=== PATIENT | female | born 1955 | race African-American/Black ===

== ENCOUNTER 2020-08-23 19:24 | Inpatient (IN) | payer MEDICARE, OTHER ==
[~2020-08-23] VITALS: Ht 152.4 cm; Wt 70.8 kg
[2020-08-23 21:58] LABS: BASOPHILS % 0.2 % (0.0-2.0); EOSINOPHILS % 0.4 % (0.0-5.0); HEMATOCRIT. 35.9 % (36.0-48.0); HEMOGLOBIN. 12.3 g/dL (12.0-16.0); LYMPHOCYTES % 13.6 % (20.0-50.0); MEAN CORPUSCULAR VOLUME 90.3 fL (81.0-99.0); MEAN PLATELET VOLUME 8.2 fl (7.4-10.4); MONOCYTES % 3.1 % (2.0-8.0); NEUTROPHILS % 82.7 % (40.0-76.0); PLATELET 347 x1000/uL (130-400); RED BLOOD CELL COUNT 3.98 mill/uL (4.2-5.4); RED CELL DISTRIBUTION WIDTH 14.2 % (11.6-14.6)
[2020-08-23 22:02] LABS: CHLORIDE 112 mEq/L (98-107)
[2020-08-24] MEDS ORDERED: SODIUM CHLORIDE 0.9% 1,000 ML IV ONE (01:00)
[2020-08-24] MEDS ORDERED: IOHEXOL-350 100 ML BOTTLE ONE (01:34)
[2020-08-24] MEDS ORDERED: ASPIRIN 325MG EC TABLET PO ONE (02:15)
[2020-08-24] MEDS ORDERED: DIPHENHYDRAMINE 50MG/ML VIAL IV PRN (08:00)
[2020-08-24] MEDS ORDERED: GUAIFENESIN 200MG/10ML SUGAR FREE UDC PO PRN (08:00)
[2020-08-24] MEDS ORDERED: NA PHOS,M-B/NA PHOS,DI-BA ENEMA 118ML PR PRN (08:00)
[2020-08-24] MEDS ORDERED: MORPHINE SULFATE 2 MG/ML CPJ (NOT FOR IM USE) IV PRN (08:00)
[2020-08-24] MEDS ORDERED: CLONIDINE 0.1MG TABLET PO PRN (08:00)
[2020-08-24] MEDS ORDERED: HYDROCODONE/ACETAMINOPHEN 5/325MG TABLET PO PRN (08:00)
[2020-08-24] MEDS ORDERED: DOCUSATE SODIUM 100MG CAPSULE PO PRN (08:00)
[2020-08-24] MEDS ORDERED: IPRATROPIUM/ALBUTEROL 0.5-3(2.5)MG/3ML NEB NEB PRN (08:00)
[2020-08-24] MEDS ORDERED: LORAZEPAM 2MG/ML CPJ IV PRN (08:00)
[2020-08-24] MEDS ORDERED: MAGNESIUM/ALUMINUM HYDROXIDE/SIMETHICONE 30ML UDC PO PRN (08:00)
[2020-08-24] MEDS ORDERED: ACETAMINOPHEN 325MG TABLET PO PRN (08:00)
[2020-08-24] MEDS ORDERED: ONDANSETRON HCL 4MG/2ML INJ IV PRN (08:00)
[2020-08-24] MEDS: ASPIRIN 81MG EC TABLET PO SCH (09:28)
[2020-08-24] MEDS: SODIUM CHLORIDE 0.45% 1,000 ML IV SCH (09:29)
[2020-08-24] MEDS: ENOXAPARIN 40MG/0.4ML SYR SUBCUT SCH (09:29)
[2020-08-24 10:04] VITALS: BP 116/61
[2020-08-24] MEDS ORDERED: ASPI-1497 MT (10:10)
[2020-08-24 11:01] LABS: CHLORIDE 114 mEq/L (98-107)
[2020-08-24 12:42] VITALS: BP 123/59
[2020-08-24] MEDS ORDERED: AMLO10TA80 MT (14:17)
[2020-08-24] MEDS ORDERED: HYDR25TA MT (14:17)
[2020-08-24 15:52] VITALS: BP 137/73
[2020-08-24 16:00] VITALS: BP_SYST 137; BP_SYST 140; BP_DIAS 73; BP_DIAS 79
[2020-08-24] MEDS ORDERED: DEXTROSE 50% WATER 50ML SYRINGE IV PRN (18:45)
[2020-08-24 20:00] VITALS: BP 144/77
[2020-08-24] MEDS: BLOOD SUGAR DIAGNOSTIC STRIP TEST SCH (20:27)
[2020-08-24] MEDS: INSULIN LISPRO 100 UNITS/ML SUBCUT SCH (20:28)
[2020-08-25] VITALS: BP_SYST 149; BP_SYST 154; BP_SYST 174; BP_DIAS 86; BP_DIAS 87; BP_DIAS 95
[2020-08-25 01:23] LABS: CLARITY URINE CLEAR (CLEAR); COLOR URINE YELLOW (YELLOW); KETONES URINE NEGATIVE (NEGATIVE); LEUKOCYTE ESTERASE URINE NEGATIVE (NEGATIVE); NITRITE URINE NEGATIVE (NEGATIVE); OCCULT BLOOD URINE NEGATIVE (NEGATIVE); PROTEIN URINE NEGATIVE (NEGATIVE); SPECIFIC GRAVITY URINE 1.006 (1.005-1.030); UROBILINOGEN URINE 0.2 E.U./dL (0.2-1.0)
[2020-08-25 04:00] VITALS: BP 144/82
[2020-08-25 06:18] LABS: BASOPHILS % 0.4 % (0.0-2.0); EOSINOPHILS % 1.7 % (0.0-5.0); HEMOGLOBIN. 11.2 g/dL (12.0-16.0); LYMPHOCYTES % 38.8 % (20.0-50.0); MEAN CORPUSCULAR HEMOGLOBIN 29.8 pg (28.0-32.0); MEAN CORPUSCULAR VOLUME 90.3 fL (81.0-99.0); MEAN PLATELET VOLUME 8.2 fl (7.4-10.4); MONOCYTES % 5.9 % (2.0-8.0); NEUTROPHILS % 53.2 % (40.0-76.0); PLATELET 319 x1000/uL (130-400); RED BLOOD CELL COUNT 3.77 mill/uL (4.2-5.4); RED CELL DISTRIBUTION WIDTH 14.1 % (11.6-14.6)
[2020-08-25 06:54] LABS: CHLORIDE 114 mEq/L (98-107)
[2020-08-25 07:06] LABS: T4 FREE 1.07 ng/dL (0.76-1.46)
[2020-08-25 07:08] LABS: HDL CHOLESTEROL 51 mg/dL (40-59)
[2020-08-25 07:09] LABS: LDL CHOLESTEROL 91 mg/dL (5-100)
[2020-08-25] MEDS: BLOOD SUGAR DIAGNOSTIC STRIP TEST SCH (07:10)
[2020-08-25] MEDS: INSULIN LISPRO 100 UNITS/ML SUBCUT SCH (07:40)
[2020-08-25 09:14] VITALS: BP 139/80
[2020-08-25] MEDS: ENOXAPARIN 40MG/0.4ML SYR SUBCUT SCH (09:31)
[2020-08-25] MEDS: ASPIRIN 81MG EC TABLET PO SCH (09:31)
[2020-08-25] MEDS: SODIUM CHLORIDE 0.45% 1,000 ML IV SCH (09:32)
[2020-08-25 10:18] VITALS: BP 138/69
== END 2020-08-25 10:44 | disposition home or self-care (01) | DRG 52 ==
LOC: ER 19:33 → 8WST 08-24 02:12 → ENRESERV 08-24 08:11
PROVIDERS: ADMIT Internal Medicine; ATTEND Internal Medicine
DX: G93.41 Metabolic encephalopathy (principal); E11.9 Type 2 diabetes mellitus without complications; E86.0 Dehydration; I10 Essential (primary) hypertension; I25.10 Atherosclerotic heart disease of native coronary artery without angina pectoris; Z82.49 Family history of ischemic heart disease and other diseases of the circulatory system; Z86.73 Personal history of transient ischemic attack (TIA), and cerebral infarction without residual deficits; Z79.899 Other long term (current) drug therapy
CPT/HCPCS: 36415; 70496; 70498; 71045; 80048; 80053; 80061; 81003; 82962; 83036; 83880; 84439; 84443; 84484; 85025; 93005; 93306; 99285; J1650; J7030; Q9967

== ENCOUNTER 2023-08-10 12:12 | Emergency (ER) | payer MEDICARE, OTHER ==
[~2023-08-10] VITALS: Ht 152.4 cm; Wt 82.0 kg
[~2023-08-10 12:12] MED LIST: AMLO10TA80 MT; ASPI-1497 MT; HYDR25TA MT
[2023-08-10 12:50] VITALS: TEMP 98.3; O2SAT 99
[2023-08-10 13:21] LABS: BASOPHILS % 0.6 % (0.0-2.0); EOSINOPHILS % 1.8 % (0.0-5.0); HEMATOCRIT. 36.3 % (36.0-48.0); LYMPHOCYTES % 40.8 % (20.0-50.0); MEAN CORPUSCULAR HEMOGLOBIN 30.5 pg (28.0-32.0); MEAN CORPUSCULAR HGB CONC 33.2 g/dL (31.0-37.0); MEAN PLATELET VOLUME 7.7 fl (7.4-10.4); MONOCYTES % 4.7 % (2.0-8.0); NEUTROPHILS % 52.1 % (40.0-76.0); PLATELET 382 x1000/uL (130-400); RED BLOOD CELL COUNT 3.95 mill/uL (4.2-5.4); RED CELL DISTRIBUTION WIDTH 13.7 % (11.6-14.6); WHITE BLOOD COUNT 6.9 x1000/uL (4.5-11.0)
[2023-08-10 13:25] LABS: CHLORIDE 106 mEq/L (98-107); POTASSIUM 4.5 mEq/L (3.5-5.1); SODIUM 137 mEq/L (136-145)
[2023-08-10 13:26] LABS: CARBON DIOXIDE 22 mEq/L (21-32)
[2023-08-10 13:27] LABS: CALCIUM 9.7 mg/dL (8.7-10.4)
[2023-08-10 13:31] LABS: CREATININE 1.2 mg/dL (0.6-1.0); GLUCOSE 88 mg/dL (70-105); UREA NITROGEN BLOOD 15 mg/dL (9-23)
[2023-08-10 13:38] LABS: CLARITY URINE CLEAR (CLEAR); COLOR URINE YELLOW (YELLOW); GLUCOSE URINE NEGATIVE (NEGATIVE); KETONES URINE NEGATIVE (NEGATIVE); LEUKOCYTE ESTERASE URINE TRACE (NEGATIVE); NITRITE URINE NEGATIVE (NEGATIVE); OCCULT BLOOD URINE NEGATIVE (NEGATIVE); PH URINE 7.5 (4.5-8.0); PROTEIN URINE NEGATIVE (NEGATIVE); SPECIFIC GRAVITY URINE 1.013 (1.005-1.030); UROBILINOGEN URINE 0.2 E.U./dL (0.2-1.0)
[2023-08-10 13:40] LABS: TROPONIN I HIGH SENSITIVITY < 4 ng/L (3.0-34)
[2023-08-10 14:09] LABS: SQUAMOUS EPITHELIAL CELL URINE 2+ /lpf (RARE/1+)
[2023-08-10 14:10] LABS: RBC URINE NONE SEEN /hpf (0-2)
[2023-08-10 14:12] LABS: BACTERIA URINE TRACE
[2023-08-10] MEDS ORDERED: NITR-87 MT (15:59)
[2023-08-10 16:20] VITALS: BP 162/76; PULSE 71; RESP 12
== END 2023-08-10 16:25 | disposition home or self-care (01) ==
LOC: ER 12:12
DX: R07.89 Other chest pain (principal); E11.9 Type 2 diabetes mellitus without complications; I10 Essential (primary) hypertension; Z88.0 Allergy status to penicillin
CPT/HCPCS: 80048; 81003; 85025; 85379; 84484; 36415; 71045; 93005; 99285; Z7610

== ENCOUNTER 2024-02-15 05:04 | Emergency (ER) | payer MEDICARE, OTHER ==
[~2024-02-15] VITALS: Ht 167.6 cm; Wt 90.0 kg
[~2024-02-15 05:04] MED LIST changes: +NITR-87 MT
[2024-02-15] MEDS: SODIUM CHLORIDE 0.9% (SEPSIS BOLUS) IV ONE (05:04)
[2024-02-15] MEDS ORDERED: NOREPINEPHRINE 8MG/250ML PMX 250 ML IV ONE (05:19)
[2024-02-15] MEDS ORDERED: EPINEPHRINE 5 MG in SODIUM CHLORIDE 0.9% 245 ML IV PRN (05:45)
[2024-02-15] MEDS ORDERED: NOREPINEPHRINE 8MG/250ML PMX 250 ML IV PRN (05:45)
[2024-02-15] MEDS ORDERED: ACETAMINOPHEN 650MG SUPP PR PRN (06:00)
[2024-02-15] MEDS ORDERED: ACETAMINOPHEN 650MG/20.3ML UDC NG PRN (06:00)
[2024-02-15 06:02] VITALS: PULSE 154; RESP 24; O2SAT 72
[2024-02-15 06:45] LABS: CHLORIDE 113 mEq/L (98-107); POTASSIUM 3.9 mEq/L (3.5-5.1)
[2024-02-15] MEDS ORDERED: DOPAMINE 400MG/250ML PREMIX 250 ML IV PRN (06:45)
[2024-02-15 06:46] LABS: CARBON DIOXIDE 25 mEq/L (21-32)
[2024-02-15 06:47] LABS: HEMATOCRIT. 29.8 % (36.0-48.0); HEMOGLOBIN. 9.3 g/dL (12.0-16.0); MEAN CORPUSCULAR HEMOGLOBIN 30.6 pg (28.0-32.0); MEAN CORPUSCULAR HGB CONC 31.1 g/dL (31.0-37.0); MEAN CORPUSCULAR VOLUME 98.2 fL (81.0-99.0); MEAN PLATELET VOLUME 8.1 fl (7.4-10.4); PLATELET 75 x1000/uL (130-400); RED BLOOD CELL COUNT 3.03 mill/uL (4.2-5.4); RED CELL DISTRIBUTION WIDTH 15.1 % (11.6-14.6); WHITE BLOOD COUNT 9.3 x1000/uL (4.5-11.0)
[2024-02-15] MEDS ORDERED: DOPAMINE 400MG/250ML PREMIX 250 ML IV ONE (06:47)
[2024-02-15 06:51] LABS: DIFFERENTIAL COMMENT 1; GLUCOSE 300 mg/dL (70-105); UREA NITROGEN BLOOD 48 mg/dL (9-23)
[2024-02-15 07:10] LABS: SODIUM 158 mEq/L (136-145)
[2024-02-15 07:11] LABS: CALCIUM 13.1 mg/dL (8.7-10.4); PHOSPHORUS 10.4 mg/dL (2.5-4.9)
[2024-02-15 07:12] LABS: TROPONIN I HIGH SENSITIVITY 2376 ng/L (3.0-34)
[2024-02-15 09:24] LABS: PLATELET ESTIMATE DECREASED
[2024-02-15] MEDS: EPINEPHRINE 5 MG in SODIUM CHLORIDE 0.9% 245 ML IV PRN (09:40)
== END 2024-02-15 06:54 ==
LOC: ER 05:04
DX: I46.9 Cardiac arrest, cause unspecified (principal); I10 Essential (primary) hypertension; Z88.0 Allergy status to penicillin; Z79.82 Long term (current) use of aspirin; Z79.899 Other long term (current) drug therapy; Z98.890 Other specified postprocedural states
CPT/HCPCS: 80048; 82962; 83880; 83735; 84100; 85025; 84484; 36415; 71045; 92950; 31500 ×2; 94664; 93005; 94070; 98960; 36556; 96361; 96365; 99285; J3490; J7030; J1265; Z7610 ×5; 94002